=== PATIENT | female | born 2000 | race African-American/Black ===

== ENCOUNTER 2023-04-13 08:26 | Emergency (ER) | payer OTHER, SELFPAY ==
[2023-04-13 08:49] VITALS: BP 129/65; PULSE 70; RESP 18; TEMP 35.9; O2SAT 99; BMI 32.3
--- NOTE | 2023-04-13 09:59 | ED_ITS ---
HPI - Extremity Injury (Lower) General Chief Complaint: Extremity Pain/Injury, Lower Stated Complaint: L foot and back pain Time Seen by Provider: 04/13/23 09:01 History of Present Illness HPI Narrative: This 22-year-old female comes in reporting knee pain for the past 3 months. Back in December she states that she injured her knee and has had pain in the medial aspect since then. She does report some instability and states that at the time of the injury her knee did swell up significantly. She did present to a different facility and had x-ray at that time. She said nothing else has been done in this regard. She also reports a persistent ingrown toenail of her left great toe. She did receive antibiotic treatment for this but continues to have pain in her left great toe. Related Data Previous Rx's Medication Instructions Recorded ketorolac 10 mg tablet 10 mg PO Q8H 5 days #15 tabs 04/13/23 Allergies Allergy/AdvReac Type Severity Reaction Status Date / Time No Known Drug Allergies Allergy Verified 04/13/23 08:49 Review of Systems Status of ROS: Reports: 10 or more systems reviewed and unremarkable except as noted in History and below Narrative: Constitutional: No fevers, no weight gain or loss. Eyes: No discharge. No vision changes. HENT: No congestion, no sore throat, no ear pain. Cardiovascular: No chest pain, no palpitations. Respiratory: No shortness of breath, no wheezes, no cough. Gastrointestinal: No abdominal pain, no vomiting, no diarrhea. Genitourinary: No dysuria, no hematuria. Musculoskeletal: Normal range of motion. Left knee pain as described above. Skin: No rashes, no pruritis. Neurological: No dizziness, weakness, sensory change, speech change. Endo/Heme/Allergies: No bruising or bleeding. No polydipsia. Pysch: no suicidality, no anxiety, no insomnia. All other systems reviewed and are negative. PFSH PFSH Social History Smoking Status: Never smoker How often do you have a drink containing alcohol: never AUDIT-C Alcohol total score: 0 Non-prescribed substance use: denies use Exam Narrative: Exam Narrative: Constitutional: Well-developed, well-nourished, no acute distress. HEENT: Normocephalic, atraumatic. Neck: Normal range of motion. Nontender. Supple. Heart: Regular. No murmurs. Normal rate. Intact distal pulses. Lungs: Clear to auscultation. No chest discomfort. No wheezes, rhonchi, or rales. Abdomen: Normal bowel sounds. Nontender. No rebound tenderness. Genitalia: Deferred. Back: No midline tenderness. Normal range of motion. Extremities: Normal range of motion. Left knee has pain in the medial aspect and this pain is reproduced under valgus stress. It was difficult to do [place]'s test but there is possibility of some instability of her ACL. Skin: Intact. No rash. Warm. No erythema or pallor. Neurologic: No altered sensation. No weakness. Alert and oriented. Psychiatric: No suicidality. No anxiety or depression. No insomnia. Nursing notes and vitals signs are reviewed. Const: Vital Signs, click to edit/add: Vital Signs - 24 hr 04/13/23 08:49 Temperature 96.7 F L Pulse Rate [Pulse Oximeter] 70 Respiratory Rate 18 Blood Pressure [Le ft Upper Arm] 129/65 Pulse Oximetry 99 Oxygen Delivery Me thod Room Air Course Vital Signs Vital signs: Initial Vital Signs Temperature 96.7 F L 04/13/23 08:49 Temperature Source Temporal Artery Scan 04/13/23 08:49 Pulse Rate 70 04/13/23 08:49 Pulse Rhythm Regular 04/13/23 08:49 Respiratory Rate 18 04/13/23 08:49 Blood Pressure 129/65 04/13/23 08:49 Blood Pressure Mean 86 04/13/23 08:49 Blood Pressure Position Sitting 04/13/23 08:49 Pulse Oximetry 99 04/13/23 08:49 Oxygen Delivery Method Room Air 04/13/23 08:49 Vital Signs Temperature 96.7 F L 04/13/23 08:49 Pulse Rate 70 04/13/23 08:49 Respiratory Rate 18 04/13/23 08:49 Blood Pressure 129/65 04/13/23 08:49 Pulse Oximetry 99 04/13/23 08:49 Oxygen Delivery Method Room Air 04/13/23 08:49 Temperature 96.7 F L 04/13/23 08:49 Pulse Rate 70 04/13/23 08:49 Respiratory Rate 18 04/13/23 08:49 Blood Pressure 129/65 04/13/23 08:49 Pulse Oximetry 99 04/13/23 08:49 Oxygen Delivery Method Room Air 04/13/23 08:49 MDM - Extremity Injury (Lower) MDM Narrative Medical decision making narrative: This patient injured her left knee about 3 months ago and continues to have pain and does report some instability. There is suspicion of ligament injury involving MCL and possibly ACL. She is ambulatory. She states that she has pain especially when ambulating up and down steps. The patient did receive a knee immobilizer and is instructed to follow-up with orthopedic clinic. She had an x-ray done in the past so I did not repeat any x-ray today seeing also that she is ambulatory. As for her ingrown toenail I advised her to follow-up with Podiatry Clinic. Phone numbers are provided to the patient for this to occur. Discharge Plan Discharge Clinical Impression: MCL sprain of left knee Patient Disposition: Home, Self-Care Condition: Unchanged Additional Instructions: Wear knee immobilizer as needed. Take medication also as needed and directed. Follow up with orthopedic clinic by calling [phone]. Follow-up with podiatry clinic by calling [phone]. Prescriptions: New ketorolac 10 mg tablet 10 mg PO Q8H 5 Days Qty: 15 0RF Follow Up/Referrals: Provider,Not a Local [Primary Care Provider] - Stand Alone Forms: [employer] Info Instructions
--- NOTE | 2023-04-13 10:12 | ED.NURSE ---
knee immobilizer placed.
== END 2023-04-13 10:30 | disposition home or self-care (01) ==
PROVIDERS: Emergency Provider Emergency Medicine Emergency Medical Services
DX: S83.412A Sprain of medial collateral ligament of left knee, initial encounter (principal)
CPT/HCPCS: 99283; 99284

== ENCOUNTER 2023-07-24 18:15 | Emergency (ER) | payer OTHER, SELFPAY ==
[2023-07-24 18:55] VITALS: BP 110/73; PULSE 78; RESP 18; TEMP 36.6; O2SAT 99; BMI 30.2
--- NOTE | 2023-07-24 21:33 | ED.GENADULT ---
HPI - General Adult General Chief complaint: Back Injury/Pain Stated complaint: fell a week ago, back injury and left side Time Seen by Provider: 07/24/23 21:14 History of Present Illness HPI narrative: This 23-year-old female comes in reporting pain in her low back extending into her right hip. She fell about a week ago. She slipped in the bathroom and fell injuring her right hip and low back. She had x-ray of her lumbar spine and hip prior to arrival. There were no acute findings on the studies. She did received prescription for Toradol and a muscle relaxant but states that they are not helping her very much. She is requesting time off from work. She states that she is able to ambulate. Related Data Home Medications Medication Instructions Recorded Confirmed ferrous sulfate 325 mg (65 mg 325 mg PO DAILY 07/24/23 07/24/23 iron) tablet,delayed release Allergies Allergy/AdvReac Type Severity Reaction Status Date / Time No Known Drug Allergies Allergy Verified 04/13/23 08:49 Review of Systems Status of ROS: Reports: 10 or more systems reviewed and unremarkable except as noted in History and below Narrative: Constitutional: No fevers, no weight gain or loss. Eyes: No discharge. No vision changes. HENT: No congestion, no sore throat, no ear pain. Cardiovascular: No chest pain, no palpitations. Respiratory: No shortness of breath, no wheezes, no cough. Gastrointestinal: No abdominal pain, no vomiting, no diarrhea. Genitourinary: No dysuria, no hematuria. Musculoskeletal: Normal range of motion. Low back pain extending into the right buttock. Skin: No rashes, no pruritis. Neurological: No dizziness, weakness, sensory change, speech change. Endo/Heme/Allergies: No bruising or bleeding. No polydipsia. Pysch: no suicidality, no anxiety, no insomnia. All other systems reviewed and are negative. PFSH PFS Social History Smoking Status: Never smoker How often do you have a drink containing alcohol: never AUDIT-C Alcohol total score: 0 Non-prescribed substance use: denies use Exam Narrative: Exam Narrative: Constitutional: Well-developed, well-nourished, no acute distress. HEENT: Normocephalic, atraumatic. Neck: Normal range of motion. Nontender. Supple. Heart: Regular. No murmurs. Normal rate. Intact distal pulses. Lungs: Clear to auscultation. No chest discomfort. No wheezes, rhonchi, or rales. Abdomen: Normal bowel sounds. Nontender. No rebound tenderness. Genitalia: Deferred. Back: No midline tenderness. Normal range of motion. She reports pain in the low back radiating into the right buttock. Extremities: Normal range of motion. No injury. Skin: Intact. No rash. Warm. No erythema or pallor. Neurologic: No altered sensation. No weakness. Alert and oriented. Psychiatric: No suicidality. No anxiety or depression. No insomnia. Nursing notes and vitals signs are reviewed. Const: Vital Signs, click to edit/add: Vital Signs - 24 hr 07/24/23 18:55 Temperature 97.8 F Pulse Rate [Pulse Oximeter] 78 Respiratory Rate 18 Blood Pressure [Ri ght Upper Arm] 110/73 Pulse Oximetry 99 Oxygen Delivery Me thod Room Air Course Vital Signs Vital signs: Initial Vital Signs Temperature 97.8 F 07/24/23 18:55 Temperature Source Temporal Artery Scan 07/24/23 18:55 Pulse Rate 78 07/24/23 18:55 Respiratory Rate 18 07/24/23 18:55 Blood Pressure 110/73 07/24/23 18:55 Blood Pressure Mean 85 07/24/23 18:55 Pulse Oximetry 99 07/24/23 18:55 Oxygen Delivery Method Room Air 07/24/23 18:55 Vital Signs Temperature 97.8 F 07/24/23 18:55 Pulse Rate 78 07/24/23 18:55 Respiratory Rate 18 07/24/23 18:55 Blood Pressure 110/73 07/24/23 18:55 Pulse Oximetry 99 07/24/23 18:55 Oxygen Delivery Method Room Air 07/24/23 18:55 Temperature 97.8 F 07/24/23 18:55 Pulse Rate 78 07/24/23 18:55 Respiratory Rate 18 07/24/23 18:55 Blood Pressure 110/73 07/24/23 18:55 Pulse Oximetry 99 07/24/23 18:55 Oxygen Delivery Method Room Air 07/24/23 18:55 Medical Decision Making MDM Narrative Medical decision making narrative: This patient comes in because of an injury that occurred a bit more than a week ago. She states that she is not getting any better. She has had x-ray imaging with negative results. She has also received prescription for Toradol and what sounds like Flexeril. She is not exhibiting any signs or symptoms of a worsening process that would require further imaging at this time. I reassured her that this type of injury can take some time to recover and encouraged her to maintain activity as tolerated. She did receive a prescription for some tablets of [place] and I did provide a return to work note. Discharge Plan Discharge Clinical Impression: Strain of lumbar region Patient Disposition: Home, Self-Care Condition: Unchanged Additional Instructions: Take medications as needed and indicated. Increase activity as tolerated. Follow up with MD return if worsening. Prescriptions: No Action ferrous sulfate 325 mg (65 mg iron) tablet,delayed release (DR/EC) 325 mg PO DAILY Follow Up/Referrals: Provider,Not a Local [Primary Care Provider] - Stand Alone Forms: [employer] Info Instructions
== END 2023-07-24 22:01 | disposition home or self-care (01) ==
LOC: ED 21:45
PROVIDERS: Emergency Provider Emergency Medicine Emergency Medical Services
DX: S39.012A Strain of muscle, fascia and tendon of lower back, initial encounter (principal)
CPT/HCPCS: 99283; 99284